=== PATIENT | male | born 1985 | race Caucasian/White ===

== ENCOUNTER 2017-06-16 14:51 | Emergency (ER) | payer MEDICAID ==
[~2017-06-16] VITALS: Ht 175.3 cm; Wt 76.0 kg
[2017-06-16] MEDS ORDERED: CLON.5 PO (15:11)
[2017-06-16] MEDS ORDERED: OXYC10 PO (15:11)
[2017-06-16] MEDS ORDERED: CELE100 PO (15:11)
[2017-06-16] MEDS ORDERED: PRAZ1 PO (15:11)
[2017-06-16] MEDS ORDERED: KETOROLAC TROMETHAMINE 30 MG/ML VIAL IM ONE (17:15)
[2017-06-16] MEDS ORDERED: LIDOCAINE HCL 1% 10 ML VIAL INJ ONE (17:30)
[2017-06-16] MEDS ORDERED: PERTUSS(ACELL),DIPH,TET VAC/PF 0.5 ML VIAL IM ONE (17:45)
[2017-06-16] MEDS ORDERED: HYDROCODONE/ACETAMINOPHEN 10-325 MG TABLET PO ONE (18:30)
[2017-06-16 18:54] VITALS: BP 129/85
== END 2017-06-16 18:58 | disposition home or self-care (01) ==
LOC: EMS 14:53
DX: S63.91XA Sprain of unspecified part of right wrist and hand, initial encounter (principal); W22.8XXA Striking against or struck by other objects, initial encounter; Y93.89 Activity, other specified; Y92.89 Other specified places as the place of occurrence of the external cause; Y99.8 Other external cause status
CPT/HCPCS: 26605; 73130; 90471; 90715; 96372; 99284; J1885; J3490